=== PATIENT | male | born 1990 | race Asian ===

== ENCOUNTER 2022-01-29 21:03 | Emergency (ER) | payer BC, SELFPAY ==
[2022-01-29 21:05] VITALS: BP 110/51; PULSE 77; RESP 16; TEMP 36.7; O2SAT 97; BMI 29.4
--- NOTE | 2022-01-29 21:13 | ED.ALLEREA ---
HPI - Allergic Reaction General Chief complaint: Allergic Reaction Stated complaint: ?allergic reaction rash Time Seen by Provider: 01/29/22 21:12 Source: patient Mode of arrival: ambulatory Limitations: no limitations History of Present Illness HPI narrative: This is a 31-year-old male presenting to the emergency department with a rash throughout his entire body, rash started after he ate muscles last night at approximately 19:00. Patient tells me that he took Benadryl with little to no relief, he notes that today over the past few hours the rash has been worsening and extending throughout his entire body. He tells me that the rash is extremely itchy. He tells me that for dinner he had left over muscles with rice and eggs. He has known allergies to apples, Dillon fruit. However, no allergies to great fruit. Denies chest pain, shortness of breath, nausea, vomiting, abdominal pain, diarrhea, headache, vision changes or dizziness. He tells me that this has never happened to him before. MD complaint: allergic reaction and hives Onset (ago): day(s) (2) Exposure: food (Mussles (shellfish) ) Symptoms: rash Severity: severe Treatment prior to arrival: none Previous Allergic Reaction History: none Related Data Previous Rx's Medication Instructions Recorded diphenhydramine HCl 25 mg tablet 50 mg PO Q6H PRN allergic reaction 01/29/22 (Benadryl Allergy) #20 tabs epinephrine 0.3 mg/0.3 mL 0.3 mg (0.3 mL) IM Q4H PRN 01/29/22 injection, auto-injector (EpiPen anaphylaxis #2 ea 2-Kristopher) prednisone 20 mg tablet 40 mg PO DAILY 5 days #10 tabs 01/29/22 Allergies Allergy/AdvReac Type Severity Reaction Status Date / Time apple Allergy Itching Verified 01/29/22 21:31 milk Allergy Diarrhea Verified 01/29/22 21:31 black juan Allergy Itching Uncoded 01/29/22 21:31 jackfrui Allergy Itching Uncoded 01/29/22 21:31 Review of Systems Review of Systems: Constitutional : No Weight loss, No Fever, No Chills, No Fatigue, No Malaise ENT/Mouth : No sore throat, No Rhinorrhea Eyes: No Eye Pain, No Swelling, No Redness Cardiovascular : No Chest Pain, No SOB, No Dyspnea on Exertion, No Orthopnea, No Edema, No Palpitations Respiratory : No Cough, No Sputum, No Wheezing Gastrointestinal : No Nausea, No Vomiting, No Diarrhea, No Constipation, No abdominal Pain, No Hematochezia, No Melena Genitourinary : No Dysuria, No Urinary Frequency, No Hematuria, Musculoskeletal : No joint pain, No Myalgias, No Joint Swelling Skin : No Skin Lesions, + rash Neuro : No Weakness, No Numbness, No Dizziness, No Headache All other systems reviewed and are negative Yes all other systems are reviewed and are negative [facility] Past Medical History Attestation statement: The following information was validated with the patient. Source: old records reviewed and nursing notes reviewed Social History Social History Patient Tobacco Use Status: Never used Tobacco Smoked in Last 30 Days: No Use of substances other than those prescribed or required for medical reasons: No Advance Directives: No Advance Directives Information Provided: No Physical Exam ED Vital Signs: Vital Signs - 24 hr 01/29/22 21:05 01/29/22 21:27 01/29/22 23:08 Temperature 98.1 F Pulse Rate 77 67 74 Respiratory Rate 16 12 19 Blood Pressure 110/51 L 117/73 105/43 L Pulse Oximetry 97 100 98 Oxygen Delivery Method Room Air Room Air Room Air BMI result Body Mass Index 29.4 vss Appearance: Alert.? Oriented X3.? No acute distress.? Patient speaking in full sentences, controlling secretions well. Head: Normocephalic, atraumatic, no step-offs or deformities Eyes: Pupils equal, round and reactive to light.? ENT: Posterior pharynx slight edema to posterior pharynx, no edema to tongue, hard or soft palate, lips. Neck: Normal inspection.? Neck supple.? CVS: Normal heart rate and rhythm.? Pulses normal.? Respiratory: No respiratory distress.? Breath sounds normal.?No stridor Abdomen: Soft and nontender.? Skin: Skin warm and dry.? Normal skin color.? Normal skin turgor.?+ diffuse urticaria Extremities: No lower extremity edema.? No calf ttp. 5/5 strength to bilateral upper and lower extremities Back: No midline tenderness, no C-spine tenderness, full range of motion, no CVA tenderness bilaterally Neuro: Oriented X 3.? No motor deficit.? No sensory deficit. CN 2-12 intact Course Reevaluation(s) Reevaluation #1: Patient reporting symptomatic relief. Time: 21:51 Reevaluation #2: Upon re-evaluation patient's lungs are clear, regular rate and rhythm, Urticaria significantly improved, no longer able to appreciate edema to posterior pharynx, patient speaking in full sentences, controlling secretions well. Tells me he is feeling much better. I had my attending Dr. Del Angel evaluate this patient who agrees with diagnosis and treatment plan. I did discuss how to use an EpiPen with patient. He verbalizes understanding, he will be staying the night with his significant other he will not be alone tonight. At time of discharge patient with stable vital signs appears well. I feel comfortable with discharge home with prompt PCP and Allergy and immunology follow-up. Advised him to stay away from shellfish. He will be going home with prednisone, Benadryl and epi pens. Time: 23:13 MDM - Allergic Reaction MDM Narrative Medical decision making narrative: 2111 31 year old male presents with acute allergic reaction, patient reports he ate muscles last night since then he has been having a rash throughout his body, very itchy, uncomfortable. Denies respiratory issues at this time. Speaking in full sentences. Physical examination significant for diffuse your urticaria from head to toe. Slight edema to posterior pharynx, no edema to tongue, hard or soft palate, lips. Regular rate and rhythm. Lungs clear, no stridor. Neuro exam nonfocal. Abdomen soft nontender nondistended. Plan at this time is to administer Benadryl, Pepcid, Solu-Medrol. Will do cardiac monitoring. No need for epinephrine at this time however will closely monitor patient's airway. Medical Records Attestation: I reviewed the patient's medical records. Lab Data Attestation: I reviewed the patient's lab results. Critical Care Time Critical Care Time Critical Care Time: No Discharge Plan Discharge Clinical Impression: Allergic reaction, Urticaria Patient Disposition: Home, Self-Care Additional Instructions: Take your medications as prescribed. If you were prescribed antibiotics today, it is important that you take your medication to their entirety, do not skip any doses, do not finish them early. Follow-up with your primary care provider this week. Please call on Monday to schedule an appointment with counterintelligence/humint specialist. Do not eat any shellfish until further testing is done. I educated you on how to use an EpiPen, please use this if he feels short of breath, or if you feel like you cannot control your own secretions. If you use an EpiPen you need to be evaluated by a medical professional, please call 911 or go to your closest emergency department. Return to the emergency department with new or worsening symptoms. Such as fevers, chills, chest pain, shortness of breath, nausea, vomiting, dizziness, headache, vision changes, lethargy, difficulty speaking, changes in voice, shortness of breath, difficulty controlling secretions In case of emergency call 911 [facility]: [facility] [address] [place], [facility] [address] Prescriptions: New prednisone 20 mg tablet 40 mg PO DAILY 5 Days Qty: 10 0RF diphenhydramine HCl [Benadryl Allergy] 25 mg tablet 50 mg PO Q6H PRN (Reason: allergic reaction) Qty: 20 0RF epinephrine [EpiPen 2-Kristopher] 0.3 mg/0.3 mL auto-injector 0.3 mg IM Q4H PRN (Reason: anaphylaxis) Qty: 2 0RF Referrals: JOHNY ARMSTRONG [Primary Care Provider] - 2 days Stand Alone Forms: Work/School Release
[2022-01-29] MEDS: Famotidine/PF 20 MG/2 ML VIAL IVPUSH (21:26)
[2022-01-29] MEDS: methylPREDNISolone Sod Succ 125 MG/2 ML VIAL IVPUSH (21:26)
[2022-01-29 21:27] VITALS: BP 117/73; PULSE 67; RESP 12; O2SAT 100
[2022-01-29] MEDS: diphenhydrAMINE HCL 50 MG/ML VIAL IVPUSH (21:39)
--- NOTE | 2022-01-29 21:52 | PC.NURSE ---
AIRWAY HAS REMAINED PATENT SINCE ARRIVAL TO FACILITY, PT HANDLING HIS OWN SECRETIONS WITH NO ISSUE. HIVES NOW ALMOST RESOLVED SINCE ADMIN OF RXS. PA AWARE. NSR ON MONITOR.
[2022-01-29 23:08] VITALS: BP 105/43; PULSE 74; RESP 19; O2SAT 98
--- NOTE | 2022-01-30 22:14 | PC.NURSE ---
pt called in this evening, stating worsening sxs, taking all rxs as prescribed, hives returning to face. instructed to return on advice of anupam donato.
== END 2022-01-29 23:49 | disposition home or self-care (01) ==
PROVIDERS: Emergency Provider Student in an Organized Health Care Education/Training Program; PCP Internal Medicine
DX: L50.0 Allergic urticaria (principal); T78.1XXA Other adverse food reactions, not elsewhere classified, initial encounter; X58.XXXA Exposure to other specified factors, initial encounter
CPT/HCPCS: 96374; 96375; 99284; J1200; J2930

== ENCOUNTER 2022-01-30 22:51 | Emergency (ER) | payer BC, SELFPAY ==
[2022-01-30 22:57] VITALS: BP 100/54; PULSE 96; RESP 18; TEMP 37.2; O2SAT 97; BMI 29.4
--- NOTE | 2022-01-31 01:44 | ED_ITS ---
HPI - Skin/Abscess/Foreign Bdy General Chief complaint: Allergic Reaction Stated complaint: hives, allergic reaction Time Seen by Provider: 01/31/22 01:42 Source: patient Mode of arrival: ambulatory History of Present Illness HPI narrative: 31-year-old male who is seen here last night for urticaria and initially thought to be an allergy to mussels without evidence of angioedema or anaphylaxis, did and was discharged home in stable condition with an EpiPen and now returns with onset of urticaria once again. Once again, he denies any difficulty breathing, he denies any difficulty swallowing, and he denies any facial/lip/tongue swelli ng. Related Data Previous Rx's Medication Instructions Recorded diphenhydramine HCl 25 mg tablet 50 mg PO Q6H PRN allergic reaction 01/29/22 (Benadryl Allergy) #20 tabs epinephrine 0.3 mg/0.3 mL 0.3 mg (0.3 mL) IM Q4H PRN 01/29/22 injection, auto-injector (EpiPen anaphylaxis #2 ea 2-Kristopher) prednisone 20 mg tablet 40 mg PO DAILY 5 days #10 tabs 01/29/22 Allergies Allergy/AdvReac Type Severity Reaction Status Date / Time apple Allergy Itching Verified 01/29/22 21:31 milk Allergy Diarrhea Verified 01/29/22 21:31 black juan Allergy Itching Uncoded 01/29/22 21:31 jackfrui Allergy Itching Uncoded 01/29/22 21:31 Review of Systems Review of Systems: Pertinent positives and negatives as stated in HPI 10 point review of systems is otherwise negative. PMFSH Past Medical History Source: nursing notes reviewed Social History Social History Patient Tobacco Use Status: Never used Tobacco Advance Directives: No Advance Directives Information Provided: No Physical Exam Vital Signs: Vital Signs: Last Vital Signs Temp 98.9 F 01/30/22 22:57 Pulse 96 01/30/22 22:57 Resp 18 01/30/22 22:57 BP 100/54 L 01/30/22 22:57 Pulse Ox 97 01/30/22 22:57 O2 Del Method 01/30/22 22:57 BMI result Body Mass Index 29.4 VITAL SIGNS: Reviewed. GENERAL: Well developed, well nourished, in no acute distress. HEAD: Normocephalic/atraumatic EYES: PERRLA, EOMI EARS: Ext canals without abnormality OROPHARYNX: no oral lesions noted, posterior pharynx clear, no lip/tongue/facial swelling LUNGS: Normal breath sounds. No adventitious sounds or accessory muscle use. SpO2<97> CARDIOVASCULAR: Regular rate and rhythm without noted murmurs ABDOMEN: Soft, non-tender, non-distended with bowel sounds. SKIN: Inspection of the skin reveals significant urticarial rash over entire body that is paretic in nature NEUROLOGIC: Alert and oriented x 4. Strength and sensation to light touch were grossly intact x 4. Course Course Course Narrative: 31-year-old male with history and clinical presentation consistent with urticarial reaction suspect that this may be secondary to patient's new cologne, however he was strongly recommended to essentially resort to all dye/fragrant free exposures. This was to include all soaps/shampoo/laundry detergent, etcetera. Patient was strongly encouraged to follow-up with his primary care provider by calling the office 1st thing in the morning. Discharge Plan Discharge Clinical Impression: Allergic reaction, Urticaria, Contact dermatitis Patient Disposition: Home, Self-Care Instructions: Contact Dermatitis (ED), Urticaria (ED), General Allergic Reaction (ED), Allergy Testing (ED) Additional Instructions: 1. Recommend consistent Benadryl. 2. Recommend splitting your dose of prednisone to 20 mg (1 tablet) in the morning and 20 mg of prednisone in the evening. 3. Also recommend that you take [id number] antacid medication to protect your stomach while taking the prednisone. 4. Follow-up with your primary care provider by calling the office in the morning. Return to the ER for worsening symptoms. Prescriptions: No Action prednisone 20 mg tablet 40 mg PO DAILY 5 Days Qty: 10 0RF diphenhydramine HCl [Benadryl Allergy] 25 mg tablet 50 mg PO Q6H PRN (Reason: allergic reaction) Qty: 20 0RF epinephrine [EpiPen 2-Kristopher] 0.3 mg/0.3 mL auto-injector 0.3 mg IM Q4H PRN (Reason: anaphylaxis) Qty: 2 0RF Stand Alone Forms: Work/School Release
[2022-01-31] MEDS: predniSONE 20 MG TABLET PO (01:50)
[2022-01-31 02:00] VITALS: BP 105/54; PULSE 68; RESP 16; TEMP 36.5; O2SAT 97
--- NOTE | 2022-01-31 04:26 | PC.NURSE ---
DIscharged at this time. Prior to now I did not visualize the hives that the pt is being treated for. I entered room with Ruben AUSTIN who stated the hives had improved. The pt, in addition, stated the hives were much better. He admits to continued pruritis. NO SOB. No hoarseness. No lip or uvular or tongue swelling. NO sob. He ambulated out of the ED independently and with steady gait.
== END 2022-01-31 04:27 | disposition home or self-care (01) ==
PROVIDERS: Emergency Provider Student in an Organized Health Care Education/Training Program; PCP Internal Medicine
DX: L50.9 Urticaria, unspecified (principal); T78.40XA Allergy, unspecified, initial encounter; X58.XXXA Exposure to other specified factors, initial encounter
CPT/HCPCS: 99283